=== PATIENT | female | born 1960 | race Caucasian/White ===

== ENCOUNTER 2017-06-03 12:41 | Outpatient (CLI) | payer OTHER ==
[~2017-06-03 12:41] MED LIST: ASA81 MG PO; BUMETANIDE2 MG PO; DIOVAN HCT 320/1 TA2 PO; HUMALOG100 U/ML; LEXAPRO5 MG PO; NEURONTIN800 MG PO; POTASSIUM CHLO20 MEQ PO; SYNTHROID100 MCG PO
== END 2017-06-03 13:20 | disposition home or self-care (01) ==
LOC: LAB 12:41
DX: I11.0 Hypertensive heart disease with heart failure (principal); D53.9 Nutritional anemia, unspecified; N39.0 Urinary tract infection, site not specified; R82.79 Other abnormal findings on microbiological examination of urine; E04.0 Nontoxic diffuse goiter; E78.2 Mixed hyperlipidemia; E10.10 Type 1 diabetes mellitus with ketoacidosis without coma

== ENCOUNTER 2023-03-25 10:46 | Outpatient (CLI) | payer OTHER ==
[2023-03-25 11:57] LABS: HEMATOCRIT 34.5 % (36.0-45.00); HEMOGLOBIN 11.5 g/dL (12.0-15.00); MEAN CELL VOLUME 88.2 fL (80.00-100.00); MEAN CORPUSCULAR HEMOGLOBIN 29.3 pg (27.00-32.0); MEAN CORPUSCULAR HGB CONC 33.2 g/dl (32.0-36.0); PLATELET COUNT 228 K/uL (150-450); RED BLOOD COUNT 3.92 M/uL (4.00-6.00); RED CELL DISTRIBUTION WIDTH 13.3 % (11.5-14.5)
[2023-03-25 12:04] LABS: PH,URINE 5.5 (5.0-8.0); URINE APPEARANCE Clear; URINE BILIRRUBIN Negative (NEGATIVE); URINE BLOOD Small; URINE COLOR Yellow; URINE GLUCOSE Negative (NEGATIVE); URINE LEUKOCYTE Trace; URINE NITRATE Negative; URINE PROTEIN Negative (NEGATIVE); URINE UROBILINOGEN 0.2 E.U./dl
[2023-03-25 12:07] LABS: URINE BACTERIA 21.4 uL (0.0-1933); URINE EPITHELIAL CELLS 5.7 uL (0.0-38.8); URINE WBC 4.6 uL (0.0-23.2)
[2023-03-25 12:45] LABS: % SATURACION 35.6 % (15-50); ALBUMIN 3.5 gm/dL (3.4-5.0); BILIRUBIN TOTAL 0.52 mg/dL (0.3-1.2); CALCIUM 8.9 mg/dL (8.5-10.1); CHOL HDL RATIO 2.5 (0-5.0); CREATININE SERUM 0.96 mg/dL (0.55-1.02); FERRITIN 116.9 NG/ML (8-252); GFR 58.89; GLOBULINA 3.2 G/DL (2.4-3.5); POTASSIUM 3.58 mEq/L (3.5-5.1); T4 FREE 1.19 NG/ML (0.76-1.46); TOTAL PROTEIN 6.7 gm/dL (6.4-8.2); TSH 2.33 uIU/mL (0.358-3.74)
[2023-03-26 11:36] LABS: FOLIC ACID > 20.00 ng/ml (4.78-20)
[2023-03-27 10:31] LABS: MANUAL PLATELET COUNT 398
[2023-03-27 10:33] LABS: PLATELET ESTIMATE NORMAL (NORMAL)
== END 2023-03-25 12:00 | disposition home or self-care (01) ==
LOC: LAB 10:46
PROVIDERS: ATTEND Internal Medicine Endocrinology, Diabetes & Metabolism
DX: I10 Essential (primary) hypertension (principal); N39.0 Urinary tract infection, site not specified; E78.2 Mixed hyperlipidemia; E04.9 Nontoxic goiter, unspecified; E10.10 Type 1 diabetes mellitus with ketoacidosis without coma; E23.1 Drug-induced hypopituitarism; D72.818 Other decreased white blood cell count; D50.8 Other iron deficiency anemias; R79.9 Abnormal finding of blood chemistry, unspecified; K76.89 Other specified diseases of liver; D51.1 Vitamin B12 deficiency anemia due to selective vitamin B12 malabsorption with proteinuria; D63.8 Anemia in other chronic diseases classified elsewhere; C56.9 Malignant neoplasm of unspecified ovary

== ENCOUNTER 2024-09-11 14:58 | Emergency (ER) | payer OTHER ==
[~2024-09-11] VITALS: Ht 154.9 cm; Wt 72.1 kg
[2024-09-11] MEDS ORDERED: ACETAMINOPHEN 500 MG GEL..CAP PO ONE (17:15)
== END 2024-09-11 19:38 | disposition home or self-care (01) ==
LOC: ER 16:12
DX: S93.692A Other sprain of left foot, initial encounter (principal); X58.XXXA Exposure to other specified factors, initial encounter; Y93.89 Activity, other specified; Y92.89 Other specified places as the place of occurrence of the external cause; Y99.9 Unspecified external cause status; M85.872 Other specified disorders of bone density and structure, left ankle and foot; M77.32 Calcaneal spur, left foot; E11.9 Type 2 diabetes mellitus without complications; Z79.4 Long term (current) use of insulin; I10 Essential (primary) hypertension; E03.9 Hypothyroidism, unspecified